=== PATIENT | female | born 1980 | race Caucasian/White ===

== ENCOUNTER 2016-09-18 10:19 | Emergency (ER) | payer OTHER ==
[2016-09-18 10:49] VITALS: BP 109/64; PULSE 67; RESP 18; TEMP 97; O2SAT 99
--- NOTE | 2016-09-18 12:51 | ED PDOC ---
- ECG O2 Sat by Pulse Oximetry: 99 Disposition - Clinical Impression Clinical Impression: Overuse syndrome - POA Present On Arrival: None - Disposition Referrals: [facility] [Outside] Disposition: Routine/Home Disposition Time: 12:50 Condition: FAIR Prescriptions: Naproxen [Naprosyn] 500 mg PO Q12H #20 tab Instructions: Wrist Injury (ED)
--- NOTE | 2016-09-18 13:14 | ED PDOC ---
Upper Extremity Pain/Injury Time Seen by Provider: 09/18/16 10:33 Chief Complaint (Nursing): Upper Extremity Problem/Injury History Per: Patient History/Exam Limitations: no limitations Onset/Duration Of Symptoms: Days (3) Current Symptoms Are (Timing): Still Present Severity: Mild Hands/Wrist (Pic): 1 - Swelling (mild) Exacerbating Factor(s): Strenuous Use Of Affected Area, Movement Additional Complaint(s): 36 yo left-hand dominant female presents to ED with complaints of left hand numbness/swelling x 3 days. Patient states started new job in past month and has been working a lot the last 3 days. Patient states numbness occurs when she squeezes her hand and has been more prominent today, which prompted visit. No meds taken. Denies recent trauma, new chemicals, itchiness, allergies, similar symptoms in the past or other hand. PMD: None. Past Medical History Reviewed: Historical Data, Nursing Documentation, Vital Signs Vital Signs: Last Vital Signs Temp 97.0 F L 09/18/16 10:46 Pulse 67 09/18/16 10:46 Resp 18 09/18/16 10:46 BP 109/64 09/18/16 10:46 Pulse Ox 99 09/18/16 12:52 - Family History Family History: States: Unknown Family Hx - Immunization History Hx Tetanus Toxoid Vaccination: No Hx Influenza Vaccination: No Hx Pneumococcal Vaccination: No - Home Medications Home Medications: Ambulatory Orders Medication Instructions Recorded Naproxen [Naprosyn] 500 mg PO Q12H #20 tab 09/18/16 - Allergies Allergies/Adverse Reactions: Allergies Allergy/AdvReac Type Severity Reaction Status Date / Time No Known Allergies Allergy Verified 09/18/16 10:46 Review of Systems ROS Statement: Except As Marked, All Systems Reviewed And Found Negative Neurological: Positive for: Numbness (left hand) Physical Exam - Reviewed Nursing Documentation Reviewed: Yes Vital Signs Reviewed: Yes - Physical Exam Appears: Positive for: Well, Non-toxic, No Acute Distress Head Exam: Positive for: ATRAUMATIC, NORMAL INSPECTION, NORMOCEPHALIC Skin: Positive for: Normal Color, Warm, Dry Eye Exam: Positive for: Normal appearance Neck: Positive for: Normal Cardiovascular/Chest: Positive for: Regular Rate, Rhythm Respiratory: Positive for: Normal Breath Sounds Pulses-Radial (L): 2+ Pulses-Radial (R): 2+ Gastrointestinal/Abdominal: Positive for: Normal Exam, Soft. Negative for: Tenderness Back: Positive for: Normal Inspection Extremity: Positive for: Normal ROM, Capillary Refill (normal), Swelling (mild swelling of hand, not involving joints). Negative for: Tenderness, Pedal Edema Neurologic/Psych: Positive for: Alert, claims clerk II-XII, Oriented. Negative for: Motor/Sensory Deficits Comments: Tinels, Phalens, and Flick test negative. - Laboratory Results Urine POC: Negative - ECG O2 Sat by Pulse Oximetry: 99 Pulse Ox Interpretation: Normal - Progress ED Course And Treament: Time: 1200 Assessment: 36 yo left hand dominant female with left hand/wrist numbness x 3 days that is intermittent related with movement. 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 No other complaints at this. Possible overuse syndrome Plan: Ibuprofen 600mg Disposition - Clinical Impression Clinical Impression: Overuse syndrome - Patient ED Disposition Is Patient to be Admitted: No Counseled Patient/Family Regarding: Diagnosis, Need For Followup, Rx Given - Disposition Referrals: [facility] [Outside] Disposition: Routine/Home Disposition Time: 12:50 Condition: FAIR Prescriptions: Naproxen [Naprosyn] 500 mg PO Q12H #20 tab Instructions: Wrist Injury (ED) - POA Present On Arrival: None
== END 2016-09-18 15:10 | disposition home or self-care (01) ==
LOC: H.ER 10:19
DX: R20.0 Anesthesia of skin (principal); M70.942 Unspecified soft tissue disorder related to use, overuse and pressure, left hand

== ENCOUNTER 2016-11-29 08:28 | Observation (INO) | payer SELFPAY ==
[2016-11-29 08:37] VITALS: BMI 28.0
[2016-11-29 08:52] VITALS: O2SAT 100
[2016-11-29] MEDS ORDERED: Sodium Chloride 0.9% 1,000 ML IV STA ×2 (09:28→12:32)
--- NOTE | 2016-11-29 09:31 | ED PDOC ---
HPI: Abdomen Time Seen by Provider: 11/29/16 09:08 Chief Complaint (Nursing): Abdominal Pain Chief Complaint (Provider): Abdominal Pain History Per: Patient History/Exam Limitations: no limitations Onset/Duration Of Symptoms: Days (x2) Location Of Pain/Discomfort: LLQ Additional Complaint(s): Talia Hansen is a 36 year old female that presents to the ED with a chief complaint of LLQ pain that she has been experiencing for the past two days. Patient denies any radiation of pain, fever, nausea, vomiting, constipation, diarrhea, or any genitourinary symptoms. She reports a subjective fever. Past Medical History Reviewed: Historical Data, Nursing Documentation, Vital Signs Vital Signs: Last Vital Signs Temp 99.0 F 11/29/16 16:05 Pulse 75 11/29/16 16:05 Resp 14 11/29/16 16:05 BP 126/77 11/29/16 16:05 Pulse Ox 100 11/29/16 16:05 - Medical History PMH: No Chronic Diseases - Surgical History Surgical History: No Surg Hx - Family History Family History: States: Unknown Family Hx - Immunization History Hx Tetanus Toxoid Vaccination: No Hx Influenza Vaccination: No Hx Pneumococcal Vaccination: No - Home Medications Home Medications: Ambulatory Orders Medication Instructions Recorded Naproxen [Naprosyn] 500 mg PO Q12H #20 tab 09/18/16 Levofloxacin [Levaquin] 750 mg PO DAILY #5 tablet 11/29/16 Naproxen [Naprosyn] 500 mg PO BID PRN #15 tablet 11/29/16 - Allergies Allergies/Adverse Reactions: Allergies Allergy/AdvReac Type Severity Reaction Status Date / Time No Known Allergies Allergy Verified 11/29/16 08:42 Review of Systems Constitutional: Positive for: Fever (subjective) Gastrointestinal: Positive for: Abdominal Pain (LLQ pain). Negative for: Nausea , Vomiting, Diarrhea, Constipation Genitourinary Female: Negative for: Dysuria, Frequency, Incontinence, Hematuria , Vaginal Discharge, Vaginal Bleeding Physical Exam - Reviewed Nursing Documentation Reviewed: Yes Vital Signs Reviewed: Yes - Physical Exam Appears: Positive for: Non-toxic, No Acute Distress Head Exam: Positive for: ATRAUMATIC, NORMOCEPHALIC Skin: Positive for: Normal Color, Warm Eye Exam: Positive for: Normal appearance Cardiovascular/Chest: Positive for: Regular Rate, Rhythm. Negative for: Murmur Respiratory: Positive for: Normal Breath Sounds. Negative for: Wheezing Gastrointestinal/Abdominal: Positive for: Tenderness (LLQ tenderness). Negative for: Normal Exam, Guarding, Rebound Neurologic/Psych: Positive for: Alert, Oriented - Laboratory Results Result Diagrams: 11/29/16 09:47 11/29/16 09:47 - ECG O2 Sat by Pulse Oximetry: 100 (RA) Pulse Ox Interpretation: Normal - CT Scan/US CT abd/pelvis Other Rad Studies (CT/US): Radiology Report Reviewed (Findings consistent with acute left pyelonephritis. No hydronephrosis. Ruptured/involuting left ovarian follicle, 1.4 cm.) Medical Decision Making Medical Decision Making: Impression: Ovarian Cyst vs. Ovarian Torsion vs. UTI Plan: * CMP * CBC * PTT * PT * Urinalysis * Urine Dip * Test * Morphine 2 mg IV * Sodium Chloride 1000 mL at 1000 mLs/hr * US Pelvis/Transvaginal * Reevaluation 10:00 Patient is to be placed in ED Obs. Scribe Attestation: Documented by Dorina Keys, acting as a scribe for Bailee Newman MD. Provider Scribe Attestation: All medical record entries made by the Scribe were at my direction and personally dictated by me. I have reviewed the chart and agree that the record accurately reflects my personal performance of the history, physical exam, medical decision making, and the department course for this patient. I have also personally directed, reviewed, and agree with the discharge instructions and disposition. ED OBSERVATION Date of observation admission: 11/29/16 Time of observation admission: 10:00 - Observation admission statement Patient is being placed in observation because:: need for serial examinations to determine stability for disposition. - Goals of Observation Goals of observation are:: resolution of pain. - Progress Note Progress Note: 11/29/16 10:00 Patient is stable, waiting lab results. 11/29/16 11:39 Patient is stable. 11/29/16 12:32 Patient given 650 mg Acetaminophen PO. 11/29/16 13:46 Patient given 1 gm Rocephin IV. 11/29/16 15:16 Patient is stable. Disposition - Clinical Impression Clinical Impression: Acute pyelonephritis - Disposition Disposition: Routine/Home Disposition Time: 15:45 Condition: STABLE
[2016-11-29 09:52] LABS: BASO % 0.2 % (0.0-2.0); HEMOGLOBIN 11.5 g/dL (12.0-16.0); LYMPH # 1.5 K/uL (1.0-4.3); LYMPH % 9.3 % (20.0-40.0); MEAN CELL VOLUME 83.3 fl (81.0-99.0); MEAN CORPUSCULAR HEMOGLOBIN 27.5 pg (27.0-31.0); MEAN PLATELET VOLUME 8.3 fl (7.2-11.7); MONO # 1.3 K/uL (0.0-0.8); NEUT % 82.5 % (50.0-75.0); PLATELET COUNT 139 K/uL (130-400); RBC 4.18 Mil/uL (3.80-5.20); RED CELL DISTRIBUTION WIDTH 16.6 % (11.5-14.5); WHITE BLOOD COUNT 15.8 K/uL (4.8-10.8)
[2016-11-29 10:00] LABS: SQUAMOUS EPITHIAL 22 /hpf (0-5); URINE BACTERIA FEW (<OCC); URINE BILIRUBIN NEGATIVE (NEGATIVE); URINE BLOOD SMALL (NEGATIVE); URINE CLARITY CLOUDY (Clear); URINE COLOR AMBER (YELLOW); URINE GLUCOSE (UA) NEG (Normal); URINE LEUKOCYTE ESTERASE MOD Leu/uL (Negative); URINE NITRATE NEGATIVE (NEGATIVE); URINE PROTEIN 30 mg/dL (NEGATIVE); URINE UROBILINOGEN 0.2-1.0 mg/dL (0.2-1.0)
[2016-11-29 10:08] LABS: ALB/GLOB RATIO 1.4 (1.0-2.1); ALBUMIN 4.7 g/dL (3.5-5.0); ALT/SGPT 79 U/L (9-52); AST/SGOT 33 U/L (14-36); BLOOD UREA NITROGEN 9 mg/dl (7-17); CALCIUM 9.1 mg/dL (8.4-10.2); GFR AFRICAN-AMERICAN > 60; GFR NON-AFRICAN AMERICAN > 60
[2016-11-29 10:16] LABS: INR 1.4 (0.9-1.2); PARTIAL THROMBOPLASTIN TIME 29.8 Seconds (25.6-37.1); PROTHROMBIN TIME 15.9 Seconds (9.8-13.1)
[2016-11-29 11:58] LABS: ANISOCYTOSIS SLIGHT; BANDS 7 % (0-2); LYMPHOCYTE 7 % (20-50); MONOCYTE 3 % (0-10); NEUTROPHIL 82 % (42-75); PLATELET ESTIMATE NORMAL (NORMAL); REACTIVE LYMPHOCYTES 1 % (0-0); TOTAL CELLS COUNTED 100
[2016-11-29 11:59] LABS: HYPOCHROMIC SLIGHT; TOXIC GRANULATION PRESENT
[2016-11-29] MEDS ORDERED: Sodium Chloride 0.9% 50 ML IV ONE (12:06)
[2016-11-29] MEDS ORDERED: Iohexol 300 100 ML IJ ONE (12:06)
--- NOTE | 2016-11-29 12:47 | US ---
HISTORY: LLQ pain COMPARISON: None available. TECHNIQUE: Transabdominal and transvaginal FINDINGS: UTERUS: Measures 8.6 x 3.4 x 4.8 cm. Uterus retroverted. No fibroid or other mass lesion seen. ENDOMETRIUM: Measures 12 mm in diameter. Unremarkable. CERVIX: Significant for small amount of a amorphous echogenic material within the cervix without evident posterior shadowing. Uncertain significance. May represent calcification or blood/ secretion within nabothian cysts. RIGHT OVARY: Measures 2.8 x 1.8 x 2.1 cm. No solid mass. Normal flow. LEFT OVARY: Measures 3.2 x 1.9 x 2.4 cm. No solid mass. Normal flow. FREE FLUID: No significant free fluid noted. OTHER FINDINGS: None. IMPRESSION: Small amount of a amorphous echogenic material within cervix, uncertain significance. Otherwise unremarkable.
--- NOTE | 2016-11-29 13:18 | CT ---
PROCEDURE: CT Abdomen and Pelvis with contrast HISTORY: Epigastric pain COMPARISON: None. TECHNIQUE: Contrast dose: 95 mL Omnipaque 300 Radiation dose: Total exam DLP = 632.82 mGy-cm. This CT exam was performed using one or more of the following dose reduction techniques: Automated exposure control, adjustment of the mA and/or kV according to patient size, and/or use of iterative reconstruction technique. FINDINGS: LOWER THORAX: Unremarkable. LIVER: Normal size, contour and attenuation. Nonspecific 8 mm rounded low-attenuation lesion in the dome of the medial left hepatic lobe. No biliary dilatation. GALLBLADDER AND BILE DUCTS: Unremarkable. PANCREAS: Unremarkable. No gross lesion or ductal dilatation. SPLEEN: Mild splenomegaly. The spleen measures 14.2 cm in greatest dimension. No focal mass. ADRENALS: Unremarkable. No mass. KIDNEYS AND URETERS: There is a wedge-shaped area of poor enhancement in the upper pole left kidney consistent with pyelonephritis. There is left perinephric stranding. There is no renal mass or calculus. There is no hydronephrosis. VASCULATURE: Unremarkable. No aortic aneurysm. BOWEL: Unremarkable. No obstruction. No gross mural thickening. APPENDIX: Normal appendix. Not identified. No secondary findings to suggest acute appendicitis. PERITONEUM: Unremarkable. No free fluid. No free air. LYMPH NODES: Unremarkable. No enlarged lymph nodes. BLADDER: Unremarkable. REPRODUCTIVE: Unremarkable uterus. Left ovarian irregularly-shaped peripherally enhancing cyst, 1.4 cm, likely ruptured/involuting follicle. BONES: No acute fracture. OTHER FINDINGS: None. IMPRESSION: Findings consistent with acute left pyelonephritis. No hydronephrosis. Ruptured/involuting left ovarian follicle, 1.4 cm.
[2016-11-29 14:00] VITALS: RESP 14
[2016-11-29] MEDS ORDERED: cefTRIAXone (Rocephin) 1 gm Inj ONE (14:01)
[2016-11-29 16:06] VITALS: BP 126/77; PULSE 75; TEMP 99
== END 2016-11-29 15:49 | disposition home or self-care (01) ==
LOC: H.ER 08:28 → H.EROBSV 10:00 → H.ER 16:06
PROVIDERS: ADMIT Emergency Medicine; ATTEND Emergency Medicine
DX: N10 Acute pyelonephritis (principal)
CPT/HCPCS: 74177; 76830; 76856; 80053; 81003; 81025; 85025; 85610; 85730; 99283; G0378; J0696; J2270; J7040; Q9967